=== PATIENT | male | born 2000 | race Caucasian/White ===

== ENCOUNTER 2022-08-27 11:59 | Emergency (ER) | payer BC ==
[2022-08-27] MEDS ORDERED: diphenhydrAMINE 12.5 MG/5 ML UDCUP ONE (12:29)
[2022-08-27] MEDS ORDERED: methylPREDNISolone Sod Succ 40 MG VIAL ONE (12:30)
[2022-08-27] MEDS ORDERED: Famotidine/PF 20 mg/2ml Vial ONE (12:30)
== END 2022-08-27 14:26 | disposition home or self-care (01) ==
LOC: CSHERS 11:59
DX: T78.1XXA Other adverse food reactions, not elsewhere classified, initial encounter (principal); F41.9 Anxiety disorder, unspecified; F17.210 Nicotine dependence, cigarettes, uncomplicated
CPT/HCPCS: 96374; 96375; J2920; Q0163; S0028